=== PATIENT | female | born 1955 | race Caucasian/White ===

== ENCOUNTER → 2024-06-17 10:25 | Outpatient (REF) | payer MEDICARE, BC, SELFPAY | LOC: HWWDC 10:25 | PROVIDERS: ATTENDING PHYSICIAN Family Medicine | DX: Z12.31 Encounter for screening mammogram for malignant neoplasm of breast (principal) | CPT/HCPCS: 77063; 77067 ==

== ENCOUNTER → 2025-06-19 10:11 | Outpatient (REF) | payer MEDICARE, BC, SELFPAY | LOC: HWWDC 10:11 | PROVIDERS: ATTENDING PHYSICIAN Obstetrics & Gynecology Gynecology; FAMILY PHYSICIAN Family Medicine | DX: Z12.31 Encounter for screening mammogram for malignant neoplasm of breast (principal) | CPT/HCPCS: 77063; 77067 ==

== ENCOUNTER 2025-07-20 11:49 | Emergency (ER) | payer MEDICARE, BC, SELFPAY ==
[2025-07-20 11:52] VITALS: BP 142/86
[2025-07-20 11:55] VITALS: BMI 27.7
--- NOTE | 2025-07-20 12:17 | ED.SKININJ ---
HPI-Injury
General
Chief Complaint: Bite
Source: patient
Exam Limitations: none
Time Seen by Provider: 07/20/25 12:00
Nursing documentation reviewed up to this point in time: agreed with
History of Present Illness-Injury
Initial Injury comments:
Patient is a healthy 70-year-old female who presents to the emergency department after mouse bite. Patient states that her house cat brought a mouse into the home on Sunday night. She was attempting to remove the mouse from the house when she
was bit on her left thumb. She did wash wound thoroughly at that time. She has been keeping wound clean and dry over the past 2 days following bite. She denies any fever, chills. She denies any significant pain, swelling, or redness around bite.
No other injury sustained. She is confident that the animal was not mouse.
She contacted her primary care physician and was referred to the emergency department for rabies and tetanus prophylaxis.
Patient is unsure when her last Tdap vaccine.
Past History
Past History
ED Past Medical History: HTN, Hypercholesterolemia and Other (Ulcerative colitis, dvt,)
ED Past Surgical History: Cholecystectomy, Gynecological (Tubal ligation, cold conization) and Orthopedic (Left shoulder repair, post surgery in 2009)
Social History
Tobacco: Non-smoker
Personal: Single
Living: with family
Employment: Employed
Review of Systems
Review of Systems
Allergies reviewed?: Yes
All Other Systems: ROS reviewed and negative except as documented in HPI and ROS
Phy Exam
Physical Exam
Physical Exam:
Vitals: Mildly hypertensive, otherwise vital signs stable. Afebrile
General: Patient is very well-appearing, in no apparent distress
Skin: Pinpoint fab to left lateral thumb. No surrounding erythema, warmth. No areas of fluctuance.
Head: Normocephalic, atraumatic
Cardiac: Regular rate
Pulm: No apparent respiratory distress
Abdomen: Nondistended
Extremities: Pinpoint bite to left thumb as above. Full range of motion in left thumb IP and MCP joint against resistance. Normal capillary refill and sensation
Neuro: Grossly intact
Psychiatric: Normal affect.
Course
Orders/Labs/Results
Orders:
Orders
07/20/25 12:16
Amoxicillin 875 mg/Clav 125 mg [Augmentin 875 mg/125 mg] 1 tablet PO NOW STA
Tetanus/Diphth/Acelpertussis [Adacel] 0.5 ml IM .ONCE ONE
Vital Signs
Initial and Last Documented VS:
Initial Vital Signs
Temp Pulse Resp BP Pulse Ox
97.9 F 93 18 142/86 100
07/20/25 11:52 07/20/25 11:52 07/20/25 11:52 07/20/25 11:52 07/20/25 11:52
Last Documented Vital Signs
Temp Pulse Resp BP Pulse Ox
97.9 F 93 18 142/86 100
07/20/25 11:52 07/20/25 11:52 07/20/25 11:52 07/20/25 11:52 07/20/25 12:18
MDM/Problems Addressed
Differential Diagnosis Includes:
Not limited to: Cellulitis, need for tetanus prophylaxis, etc.
MDM/Problems Addressed:
70-year-old female presenting after mouse bite to left thumb two days ago. No infectious symptoms. No significant pain or numbness/weakness. Vitals stable.
Physical exam as above.
Impression is healing mouse bite. Rabies prophylaxis not indicated. No evidence of surrounding cellulitis or infectious process. No significant pain or bony tenderness. Do not feel imaging indicated.
Will update tetanus booster and start patient on prophylactic Augmentin out of an abundance of caution to prevent developing infection.
Otherwise � stable for discharge home with return precautions. Patient comfortable with plan.
Chronic conditions affecting care:
N/A
Acute Exacerbation and/or Progression of Chronic Illness:
N/A
*Pulse Oximetry
SaO2: 100
Oxygen Mode of Delivery: Room air
Patient hypoxic: no
*EKG
Interpreted by ED Provider?: NA
*Loom Blower Interpretation
Rate: Loom Blower- N/A
*Critical Care Note
Total Time (30-74mins, 75-104mins- exclusive of procedures): Not Applicable
ED Attending Note
-
Portions of this chart may have been created with voice recognition software.� Occasional wrong word or��sound alike� substitutions may have occurred due to the inherent limitations of voice recognition software.
Discharge Plan
Departure
Patient Disposition: Home (Routine Discharge)
Date of Disposition: 07/20/25
Time of Disposition: 12:33
Patient with high blood pressure during this ER visit?: Yes
Condition: Good
Discharge Problem:
Bitten by mouse
Instructions: Animal Bites (DC), BLOOD PRESSURE
Prescriptions:
New
amoxicillin-pot clavulanate 875-125 mg tablet
1 tab PO BID Qty: 8 0RF
No Action
bupropion HCl 150 MG tablet sustained-release 12 hr
150 mg PO BID
pravastatin 40 MG tablet
40 mg PO DAILY
clonazepam 0.5 MG tablet
0.5 mg PO HS
hydrochlorothiazide 12.5 MG capsule
12.5 mg PO DAILY
fluoxetine 10 MG capsule
10 mg PO DAILY
diphenhydramine-acetaminophen 1 EACH tablet
1 ea PO HS
mesalamine [Apriso] 0.375 GM capsule,extended release 24hr
0.375 gm PO DAILY
Patient Comments:
4 pills at one time daily in am
levofloxacin 500 MG tablet
500 mg PO DAILY Qty: 5 0RF
warfarin [Jantoven] 5 MG tablet
3 mg PO QPM Qty: 0 0RF
Activity Restrictions/Additional Instructions:
RETURN TO THE EMERGENCY DEPARTMENT WITH ANY FEVERS, CHILLS, SIGNIFICANT REDNESS/SWELLING/WARMTH/PAIN AROUND BITE, WORSENING IN CURRENT SYMPTOMS, OR ANY OTHER CONCERNS
- As discussed, rabies prophylaxis is not recommended after a mouse bite given very low risk of transmission. You were given a tdap booster today in the emergency department. A short course of antibiotics have been sent to your pharmacy. Please take
as directed.
- Keep wound clean and dry. Monitor closely for any signs of infection
- Follow-up with your primary care physician as needed for further evaluation and/or management
Monitor your symptoms closely and return to the emergency department with any acute worsening/ new symptoms or any other concerns
Interventions
Interventions:
*Risk Screen - Suicide Last Done: 07/20/25 11:55
*Neglect/Abuse Screening Last Done: 07/20/25 11:55
*ED- Fall Risk Assessment Last Done: 07/20/25 11:58
*Nursing Disposition Last Done: 07/20/25 12:43
ED-Skin Assessment Last Done: 07/20/25 12:01
Discharge Date and Time
Discharge Date/Time: 07/20/25 13:21
Print Language: SAMOAN
[2025-07-20] MEDS: ADACEL 0.5 ML IM (12:34)
[2025-07-20] MEDS: AUGMENTIN 875 MG/125 MG 1 TABLET PO (12:34)
== END 2025-07-20 13:21 | disposition home or self-care (01) ==
LOC: EMR 11:49
PROVIDERS: EMERGENCY PHYSICIAN Emergency Medicine; FAMILY PHYSICIAN Family Medicine
DX: S61.052A Open bite of left thumb without damage to nail, initial encounter (principal); W53.01XA Bitten by mouse, initial encounter; I10 Essential (primary) hypertension; E78.00 Pure hypercholesterolemia, unspecified; K51.90 Ulcerative colitis, unspecified, without complications; Z23 Encounter for immunization; Z86.718 Personal history of other venous thrombosis and embolism; Z90.49 Acquired absence of other specified parts of digestive tract; Z98.51 Tubal ligation status
CPT/HCPCS: 99282; 90471; 90715